=== PATIENT | female | born 1970 | race Caucasian/White ===

== ENCOUNTER 2016-10-18 13:39 | Emergency (ER) | payer SELFPAY ==
[2016-10-18 14:08] VITALS: BP 133/89
--- NOTE | 2016-10-18 14:16 | ER Document Report ---
ED Medical Screen (RME) - General Stated Complaint: LEG PAIN Mode of Arrival: Ambulatory Information source: Patient Notes: 46 y/o F presents to ED c/o intermittently persistent bilateral lower extremity pain over the last 6 months worse over the last few days. Reports associated tingling. Denies fever, obvious injury, swelling or color changes. I have greeted and performed a rapid initial assessment of this patient. A comprehensive ED assessment and evaluation of the patient, analysis of test results and completion of the medical decision making process will be conducted by additional ED providers. - Related Data Allergies/Adverse Reactions: cephalexin monohydrate [From Keflex] Allergy (Verified 02/12/13 09:00) Past Medical History - Past Medical History Cardiac Medical History: Reports: Hx Hypertension - Immunizations Immunizations up to date: Yes Hx Diphtheria, Pertussis, Tetanus Vaccination: Yes Physical Exam - Vital signs Vitals: Temp Pulse Resp BP Pulse Ox 98.0 F 87 18 133/89 H 98 10/18/16 14:06 10/18/16 14:06 10/18/16 14:06 10/18/16 14:06 10/18/16 14:06 - General General appearance: Appears well, Alert In distress: None Course - Vital Signs Vital signs: Temp Pulse Resp BP Pulse Ox 98.0 F 87 18 133/89 H 98 10/18/16 14:06 10/18/16 14:06 10/18/16 14:06 10/18/16 14:06 10/18/16 14:06
--- NOTE | 2016-10-18 15:30 | ER Document Report ---
ED Extremity Problem, Lower - General Chief Complaint: Leg Pain Stated Complaint: LEG PAIN Mode of Arrival: Ambulatory TRAVEL OUTSIDE OF THE [place] IN LAST 30 DAYS: No - HPI Patient complains to provider of: Altered sensation, Pain Location: Foot, Leg, Thigh - BILATERAL Occurred: Other - MONTHS Onset/Duration: Gradual Quality of pain: Achy, Burning, Other - NUMBNESS Severity: Moderate Context: Other - NO RECENT INJURY OR INCIDENT Recent injury: No Associated symptoms: Painful ambulation Exacerbated by: Movement, Walking Relieved by: Nothing Notes: Patient has been taking ibuprofen routinely with very little relief. She has been seeing a chiropractor, also with little benefit. - Related Data Allergies/Adverse Reactions: cephalexin monohydrate [From Keflex] Allergy (Verified 02/12/13 09:00) Past Medical History - General Information source: Patient - Social History Smoking Status: Never Smoker Frequency of alcohol use: None Drug Abuse: None Lives with: Family Family History: DM Patient has suicidal ideation: No Patient has homicidal ideation: No - Past Medical History Cardiac Medical History: Reports: Hx Hypertension Pulmonary Medical History: Reports: None EENT Medical History: Reports: None Neurological Medical History: Reports: None Endocrine Medical History: Reports: None Renal/ Medical History: Reports: None. Denies: Hx Peritoneal Dialysis Malignancy Medical History: Reports: None GI Medical History: Reports: None Musculoskeltal Medical History: Reports None Psychiatric Medical History: Reports: None Traumatic Medical History: Reports: Other - [facility]NS Surgical Hx: Negative Past Surgical History: Reports: Other - PLASTIC SURGERY / SKIN GRAFTING - Immunizations Immunizations up to date: Yes Hx Diphtheria, Pertussis, Tetanus Vaccination: Yes Review of Systems - Review of Systems Constitutional: No symptoms reported. denies: Fever, Weight gain, Weight loss EENT: No symptoms reported Cardiovascular: No symptoms reported Respiratory: No symptoms reported Gastrointestinal: No symptoms reported Genitourinary: No symptoms reported Female Genitourinary: No symptoms reported Musculoskeletal: See HPI Skin: No symptoms reported Neurological/Psychological: Numbness, Tingling Physical Exam - Vital signs Vitals: Temp Pulse Resp BP Pulse Ox 98.0 F 87 18 133/89 H 98 10/18/16 14:06 10/18/16 14:06 10/18/16 14:06 10/18/16 14:06 10/18/16 14:06 Interpretation: Normal. No: Tachycardic, Hypoxic, Tachypneic - General General appearance: Appears well, Alert In distress: None - HEENT Head: Normocephalic Eyes: Normal Conjunctiva: Normal Ears: Normal Nasal: Normal Mouth/Lips: Normal Mucous membranes: Normal Neck: Normal - Respiratory Respiratory status: No respiratory distress - Cardiovascular Rhythm: Regular - Abdominal Inspection: Obese - Extremities General upper extremity: Normal inspection General lower extremity: Normal inspection - Neurological Neuro grossly intact: Yes Cognition: Normal Orientation: AAOx4 - Psychological Associated symptoms: Normal affect, Normal mood - Skin Skin Temperature: Warm Skin Moisture: Dry Skin Color: Normal Skin Turgor: Elastic Skin irregularity: other - MLTIPLE HEALED SCARS FROM JOHNS & PLASTIC SURGICAL Rx Course - Re-evaluation Re-evalutation: 10/18/16 18:34 Laboratory results discussed with patient. Will begin treatment for presumed neuropathic pain with gabapentin. Patient will follow-up with primary care provider of her choice. - Vital Signs Vital signs: Temp Pulse Resp BP Pulse Ox 98.0 F 87 18 133/89 H 98 10/18/16 14:06 10/18/16 14:06 10/18/16 14:06 10/18/16 14:06 10/18/16 14:06 - Laboratory Result Diagrams: 10/18/16 15:41 10/18/16 15:41 Laboratory results interpreted by me: 10/18/16 15:41 WBC 11.2 H Discharge - Discharge Clinical Impression: Neuropathic pain Condition: Stable Disposition: HOME, SELF-CARE Instructions: Neuropathy (OM), Ibuprofen (General) (OM) Additional Instructions: CONTINUE TAKING IBUPROFEN, BUT NO MORE THAN 800 mg THREE TIMES A DAY. TAKE GABAPENTIN (NEURONTIN) DIRECTED. FOLLOW UP WITH PRIMARY CARE PROVIDER OF YOUR CHOICE, CALL TOMORROW FOR APPOINTMENT. RETURN TO E.R. FOR RE-EVALUATION IF YOU GET WORSE, ANY TIME. Prescriptions: Gabapentin 300 mg PO ASDIR #60 capsule Referrals: CAR HATFIELD MD [ACTIVE STAFF] - Follow up as needed [facility] [Provider Group] - Follow up as needed ORLY TUBBS MD [ACTIVE STAFF] - Follow up as needed
[2016-10-18 16:51] LABS: ABSOLUTE BASOPHILS # (AUTO) 0.1 10^3/uL (0.0-0.2); ABSOLUTE EOSINOPHILS # (AUTO) 0.1 10^3/uL (0.0-0.6); ABSOLUTE LYMPHOCYTES (AUTO) 2.4 10^3/uL (0.5-4.7); ABSOLUTE MONOCYTES (AUTO) 0.6 10^3/uL (0.1-1.4); ABSOLUTE NEUT (AUTO) 8.1 10^3/uL (1.7-8.2); BASOPHILS % (AUTO) 0.4 % (0-2); EOSINOPHILS % (AUTO) 0.7 % (0-6); HEMATOCRIT 41.3 % (36.0-47.0); HEMOGLOBIN 13.4 g/dL (12.0-15.5); HGB HCT DIFFERENCE -1.1; LYMPHOCYTES % (AUTO) 21.6 % (13-45); MEAN CORPUSCULAR HGB CONC 32.5 g/dL (32.0-36.0); MEAN CORPUSCULAR VOLUME 86 fl (80-97); RED CELL DISTRIBUTION WIDTH 13.3 % (11.5-14.0); SEGMENTED NEUTROPHILS % (AUTO) 72.3 % (42-78); WHITE BLOOD COUNT 11.2 10^3/uL (4.0-10.5)
[2016-10-18 17:12] LABS: ALANINE AMINOTRANSFERASE 27 U/L (9-52); ALBUMIN 4.3 g/dL (3.5-5.0); ALKALINE PHOSPHATASE 78 U/L (38-126); ANION GAP 12 (5-19); ASPARTATE AMINO TRANSFERASE 18 U/L (14-36); BILIRUBIN,TOTAL 0.4 mg/dL (0.2-1.3); BLOOD UREA NITROGEN 17 mg/dL (7-20); CALCIUM 9.2 mg/dL (8.4-10.2); CARBON DIOXIDE 26 mmol/L (22-30); CHLORIDE 105 mmol/L (98-107); CREATINE KINASE 32 U/L (30-135); CREATININE RESULT 0.62 mg/dL (0.52-1.25); GLUCOSE 89 mg/dL (75-110); POTASSIUM 4.4 mmol/L (3.6-5.0); SODIUM 142.6 mmol/L (137-145); TOTAL PROTEIN 7.2 g/dL (6.3-8.2)
[2016-10-18 17:29] LABS: ERYTHROCYTE SEDIMENTATION RATE 19 mm/hr (0-20)
== END 2016-10-18 18:46 | disposition home or self-care (01) ==
LOC: ER 13:39
DX: M79.2 Neuralgia and neuritis, unspecified (principal); R20.0 Anesthesia of skin; R20.2 Paresthesia of skin; Z88.1 Allergy status to other antibiotic agents; Z87.828 Personal history of other (healed) physical injury and trauma; Z98.890 Other specified postprocedural states
CPT/HCPCS: 36415; 80053; 82550; 83036; 85025; 85652; 99283